=== PATIENT | male | born 1940 ===

== ENCOUNTER 2017-11-20 18:54 | Emergency (ER) | payer SELFPAY ==
[~2017-11-20] VITALS: Ht 160 cm; Wt 79.5 kg
[2017-11-20] MEDS ORDERED: TRAVZOS OU (19:44)
[2017-11-20] MEDS ORDERED: ROSU10 PO (19:44)
[2017-11-20] MEDS ORDERED: COSO10OS OU (19:44)
[2017-11-20] MEDS ORDERED: METF500T4 PO (19:44)
[2017-11-20 19:52] LABS: GLUCOSE,POINT OF CARE 116 MG/DL (70-110)
[2017-11-20 20:16] LABS: BASOPHILS % (AUTO) 0.3 % (0.0-2.0); EOSINOPHILS % (AUTO) 1.5 % (1.0-6.0); HEMATOCRIT 44.1 % (41-53); HEMOGLOBIN 15.5 g/dL (13.5-17.5); LYMPHOCYTES # (AUTO) 3.6 K/uL (1.0-4.8); LYMPHOCYTES % (AUTO) 38.8 % (22.0-44.0); MEAN CORPUSCULAR VOLUME 88 fL (80-100); MONOCYTES # (AUTO) 0.8 K/uL (0.1-1.0); NEUTROPHILS # (AUTO) 4.6 K/uL (1.8-7.7); NEUTROPHILS % (AUTO) 50.4 % (40.0-70.0); PLATELET COUNT (AUTO) 348 K/uL (150-450); RED BLOOD CELL COUNT(AUTO) 4.99 MIL/uL (4.50-5.90); RED CELL DISTRIBUTION WIDTH 13.4 % (11.5-14.5)
[2017-11-20 20:28] LABS: ANION GAP 6 mmol/L (8-16); CALCIUM, TOTAL 9.6 mg/dL (8.8-10.5); CARBON DIOXIDE 29 mmol/L (22-29); CHLORIDE 101 mmol/L (98-107); CREATININE 1.02 mg/dL (0.60-1.30); GLOMERULAR FILTR. RATE CALC > 60 mL/min (>60); GLUCOSE,RANDOM 127 mg/dL (70-110); POTASSIUM 4.7 mmol/L (3.5-5.1); SODIUM SERUM 136 mmol/L (136-145); UREA NITROGEN, BLOOD 12 mg/dL (7-18)
[2017-11-20 20:35] LABS: PROTHROMBIN TIME 10.1 SEC (9.4-11.6)
[2017-11-20 20:52] LABS: ALANINE AMINOTRANSFERASE 30 U/L (12-78); ALBUMIN 4.4 g/dL (3.4-5.0); ALKALINE PHOSPHATASE 90 U/L (46-116); ASPARTATE AMINOTRANSFERASE 25 U/L (15-37); BILIRUBIN,TOTAL 0.6 mg/dL (0.1-1.0); CREATINE KINASE MB 0.8 ng/mL (0-5); CREATINE KINASE, TOTAL 133 U/L (39-308); TOTAL PROTEIN, SERUM 9.8 g/dL (6.4-8.2)
[2017-11-20 21:07] LABS: B-TYPE NATRIURETIC PEPTIDE 35 pg/mL (0-100)
[2017-11-21 01:30] VITALS: BP 146/70
== END 2017-11-21 01:43 | disposition home or self-care (01) ==
LOC: EMS 18:56
DX: I10 Essential (primary) hypertension (principal); E11.9 Type 2 diabetes mellitus without complications; E78.00 Pure hypercholesterolemia, unspecified
CPT/HCPCS: 82962; 93005; 99285